=== PATIENT | male | born 1930 | race Caucasian/White ===

== ENCOUNTER 2018-03-03 13:56 | Emergency (ER) | payer SELFPAY ==
[~2018-03-03] VITALS: Ht 188 cm; Wt 108.9 kg
--- NOTE | 2018-03-03 14:24 | NUR ---
RECIEVED IN ED BED 09,PT IS A/OX3, PT IS HERE FOR BILATERAL LOWER EXTREMITIES SWELLING/PAIN X 10 DAYS, PT WAS ADVISED BY URGENT CARE TO R/O DVT. NAD VSS RR EVEN AND UNLABORED. KEPT COMFORTABLE. PENDING ER MD EVALUATION
[2018-03-03 14:44] LABS: BASOPHILS % (AUTO) 0.8 % (0.0-2.0); EOSINOPHILS % (AUTO) 2.2 % (0.0-6.0); HEMATOCRIT 41 % (39-51); HEMOGLOBIN 13.8 g/dL (13.5-17.5); LYMPHOCYTES # (AUTO) 1.2 /CMM (0.8-4.8); LYMPHOCYTES % (AUTO) 21.4 % (20.0-44.0); MEAN CORPUSCULAR HGB CONC 33 g/dl (31.0-36.0); MEAN CORPUSCULAR VOLUME 90 fL (80-96); MONOCYTES # (AUTO) 0.4 /CMM (0.1-1.30); MONOCYTES % (AUTO) 7.6 % (2.0-12.0); NEUTROPHILS # (AUTO) 3.9 /CMM (1.8-8.9); PLATELET COUNT (AUTO) 151 /CMM (150-450); RDW COEFFICIENT OF VARIATION 13.6 (11.5-15.0); RED BLOOD CELL COUNT(AUTO) 4.62 MIL/uL (4.5-6.0); WHITE BLOOD COUNT (AUTO) 5.6 K/uL (4.3-11.0)
[2018-03-03 14:55] LABS: CALCIUM, SERUM 9.5 mg/dL (8.5-10.1); CARBON DIOXIDE 30 mmol/L (21-32); CHLORIDE 105 mmol/L (98-107); CREATININE 1.3 mg/dL (0.6-1.3); GLUCOSE 104 mg/dL (74-106); POTASSIUM 4.3 mmol/L (3.5-5.1); SODIUM SERUM 138 mmol/L (136-145); UREA NITROGEN, BLOOD 23 mg/dL (7-18)
[2018-03-03 14:59] LABS: INR 0.97 (0.85-1.15)
[2018-03-03 15:03] LABS: TROPONIN I < 0.017 ng/mL (0.00-0.056)
[2018-03-03 15:08] LABS: B-TYPE NATRIURETIC PEPTIDE 249 PG/ML (0-125)
--- NOTE | 2018-03-03 16:41 | NUR ---
Patient discharged to home in stable condition. Written and verbal after care instructions given. Patient verbalizes understanding of instruction.IV removed. Catheter intact and site benign. Pressure and 4x4 applied to site. No bleeding noted. Ambulatory in a steady gait, left in stable condition
[2018-03-03 16:43] VITALS: BP 118/75
== END 2018-03-03 16:43 | disposition home or self-care (01) ==
LOC: ER 14:00
DX: I89.0 Lymphedema, not elsewhere classified (principal)
CPT/HCPCS: 36415; 71045; 80048; 83880; 84484; 85025; 85730; 87040; 93005; 93970; 99285; A4606; Z7610